=== PATIENT | female | born 1980 | race African-American/Black ===

== ENCOUNTER 2019-12-11 08:26 | Outpatient (CLI) | payer OTHER, MEDICAID, SELFPAY ==
--- NOTE | ~2019-12-11 | CT_ITS ---
EXAMINATION: CTA chest PE protocol DATE: 12/11/2019 09:18 INDICATION: Intermittent chest pain. Shortness of breath. TECHNIQUE: Computed tomography angiography (CTA) of the chest was performed with 100 mL Omnipaque-350 intravenous contrast timed to evaluate the pulmonary arteries. Coronal maximum intensity projection 3D-reconstructions were created by the technologist. Automated exposure control and iterative reconst ruction technique were employed. Exam dose: 579.15 mGy-cm total exam DLP. COMPARISON: None. FINDINGS: There is diagnostic contrast enhancement of the pulmonary arteries and no evidence of pulmo nary embolism. No thoracic aortic aneurysm or dissection. Normal heart size. No pericardial or pleural effusion. No pulmonary infiltrate or consolidation or pulmonary mass lesion. IMPRESSION: Negative examination; no evidence of pulmonary embolism Reviewed, dictated and finalized at [facility] Reviewed, dictated and finalized at [facility].
== END 2019-12-11 08:27 | disposition home or self-care (01) ==
LOC: ANHIMG 08:30
PROVIDERS: Visit Provider Internal Medicine Hematology & Oncology
DX: I26.99 Other pulmonary embolism without acute cor pulmonale (principal)
CPT/HCPCS: 71275; Q9967

== ENCOUNTER 2022-07-07 16:15 | Emergency (ER) | payer OTHER, MEDICAID, SELFPAY ==
[2022-07-07 16:26] VITALS: BP 153/91; PULSE 102; RESP 16; TEMP 37.5; O2SAT 100
--- NOTE | 2022-07-07 17:00 | ED.URI ---
HPI - URI/Sore Throat General Chief Complaint: Upper Respiratory Infection Stated Complaint: sore throat, cough, congestion Time Seen by Provider: 07/07/22 17:00 Source: patient, RN notes reviewed and old records reviewed Mode of arrival: ambulatory Limitations: no limitations History of Present Illness HPI Narrative: 41-year-old female who presents to [facility] with complaints week duration of productive cough, itchy throat,headache, sinus congestion and drainage which is greenish tinged, states that cough is worse at night. Patient reports that she has not had COVID vaccination has taken flu shot.Patient reports that she has been taking DayQuil and NyQuil.Patient reports no fevers, chills or sweats or any body aches, no history of asthma or tobacco use. MD elicited complaint: cough, sore throat, rhinorrhea, nasal congestion and other (headache) Onset (ago): week(s) (1) Description of mucous: green Able to tolerate fluids by mouth: Yes Treatments prior to arrival: other ( DayQuil and NyQuil) Related Data Home Medications Medication Instructions Recorded Confirmed levonorgestrel 20 mcg/24 hours (8 1 device intrauterine ONCE 01/28/21 07/07/22 yrs) 52 mg intrauterine device (Mirena) Allergies Allergy/AdvReac Type Severity Reaction Status Date / Time amoxicillin Allergy Intermediate hives Verified 07/07/22 16:30 Review of Systems Review of Systems: CONSTITUTIONAL: Denies malaise, chills, sweats, or fever. EYES: Denies visual changes, redness, or discharge. ENT: Reports rhinorrhea, congestion, sinus pain,no otalgia positive sore throat. CARDIOVASCULAR: Denies chest pain, palpitations, or edema. RESPIRATORY: Reports productive cough.? Denies dyspnea. GASTROINTESTINAL: Denies abdominal pain, nausea, vomiting, diarrhea SKIN: Denies rash or itching. MUSCULOSKELETAL: Denies myalgia. NEUROLOGIC:Reports headache. All systems reviewed & are unremarkable except as noted in HPI and below PMFSH Past Medical History Medical History Anemia Iron deficiency anemia Normal endoscopy Pulmonary embolism Surgical History Surgical History H/O gynecological procedure mirena iud 01/28/2020 Family History Family History Other Diabetes mellitus Hypertension Social History Social History Smoking status: Never smoker Alcohol intake: current Alcohol use details: socially Substance use: never Substance use type: does not use Gender identity (if verbalized by the patient): Female Spiritual care concerns: No Comments At time of signature, agree with nursing past medical, surgical, social and family history. There is no relevant family history pertinent to the presenting complaint Exam Narrative: GENERAL: Well-appearing, well-nourished, and in no acute distress. HEAD: Normocephalic EYES: PERRLA, conjunctivae clear ENT: Nares clear, turbinates edematous and erythematous, light green discharge. Mucous membranes moist. TM pearly zuniga with dull light reflex bilaterally; no tragal tenderness. Oropharynx erythematous without lesions. Tonsils not enlarged and without exudate, no drooling, no hoarseness, no trismus, uvula midline. NECK: Supple. No lymphadenopathy CHEST: Clear to auscultation, breath sounds equal. No wheezing, rhonchi, rales, or stridor. No respiratory distress, speaks in full sentences.productive cough SAO2 100% on room air HEART: Regular rate and rhythm. No murmur heard. SKIN: Warm, dry, no rash. NEURO: Alert and oriented x3. PSYCH: Normal mood and affect Course Course Emergency Course: Patient is aware of diagnosis, understands and agrees to treatment plan.? Anticipatory guidance given.? Patient agrees to follow-up as directed and
== END 2022-07-07 17:51 | disposition home or self-care (01) ==
PROVIDERS: Emergency Provider Registered Nurse; PCP Nurse Practitioner Family
DX: J06.9 Acute upper respiratory infection, unspecified (principal); R05.9 Cough, unspecified; Z86.711 Personal history of pulmonary embolism
CPT/HCPCS: 99213; G0463

== ENCOUNTER 2022-11-19 11:47 | Emergency (ER) | payer OTHER, MEDICAID, SELFPAY ==
[2022-11-19 11:55] VITALS: BP 144/88; PULSE 87; RESP 16; TEMP 37.1; O2SAT 100
--- NOTE | 2022-11-19 11:56 | ED.SKABFB ---
HPI - Skin/Abscess/Foreign Bdy General Chief complaint: Skin/Abscess/Foreign Body Stated complaint: rash on lt hand Time Seen by Provider: 11/19/22 11:56 Source: patient Mode of arrival: ambulatory Limitations: no limitations History of Present Illness HPI narrative: Ms. Gonzales is a 42-year-old female patient presenting to the clinic today with complaints of a rash to her bilateral hands. She reports she had recently had her fake nails removed and noticed black cuticles. States she is not having any other symptoms but is concerned about the black clear cuticles. She denies any chest pain or shortness of breath. Related Data Home Medications Medication Instructions Recorded Confirmed levonorgestrel 21 mcg/24 hours (8 1 device intrauterine ONCE 01/28/21 07/07/22 yrs) 52 mg intrauterine device (Mirena) Allergies Allergy/AdvReac Type Severity Reaction Status Date / Time amoxicillin Allergy Intermediate hives Verified 07/07/22 16:30 Review of Systems Review of Systems: Pertinent positives per HPI. Patient denies any fever, chills, headache, visual changes, dizziness, cough, runny nose, sore throat, shortness of breath, chest pain, palpitations, nausea, vomiting, diarrhea, constipation, abdominal pain, or any urinary issues. [facility] Past Medical History Medical History Anemia Iron deficiency anemia Normal endoscopy Pulmonary embolism Surgical History Surgical History H/O gynecological procedure mirena iud 01/28/2020 Family History Family History Other Diabetes mellitus Hypertension Social History Social History Smoking status: Never smoker Alcohol intake: current Alcohol use details: socially Substance use: never Substance use type: does not use Living arrangements: with family Gender identity (if verbalized by the patient): Female Spiritual care concerns: No Comments At the time of my signature, I reviewed and agree with the nursing past medical, surgical, social, and family history. There is no relevant family history pertinent to the patient complaint. Exam Narrative: General: Well-developed, well nourished, in no apparent distress Head: Normocephalic, atraumatic. Cardio: Regular rate and rhythm, s1 and s2 normal, no murmur appreciated. Resp: Clear to auscultation bilaterally, no rhonchi, rales, wheezing or rubs. Extremities: No deformity, no edema, no cyanosis, capillary refill less than 2 seconds, peripheral pulses palpable and strong. Black cuticles around all fingernails to bilateral hand Integumentary: [place], warm, and dry, intact without lesion, no rashes. Course Course Emergency Course: Portions of this record may have been created with voice recognition software. Level of Care: Express Care Visit Vital Signs Vital signs: Vital Signs Temperature 37.1 C 11/19/22 11:55 Pulse Rate 87 11/19/22 11:55 Respiratory Rate 16 11/19/22 11:55 Blood Pressure 144/88 H 11/19/22 11:55 Pulse Oximetry 100 11/19/22 11:55 Temperature 37.1 C 11/19/22 11:55 Pulse Rate 87 11/19/22 11:55 Respiratory Rate 16 11/19/22 11:55 Blood Pressure 144/88 H 11/19/22 11:55 Pulse Oximetry 100 11/19/22 11:55 Vital signs reviewed MDM - Skin/Abscess/Foreign Bdy MDM Narrative Medical decision making narrative: At the time of visit patient is resting comfortably on the exam table. I suspect the patient has darkening of her cuticles due to anemia/vitamin B12 deficiency. Patient does have history of anemia/vitamin B12 deficiency. No sign of fungal infection and she denies any heart problems. Supportive measures were discussed with the patient she voiced understanding discharge instructions and agrees to felipe
== END 2022-11-19 12:13 | disposition home or self-care (01) ==
PROVIDERS: Emergency Provider Nurse Practitioner Family; PCP Nurse Practitioner Family
DX: E53.8 Deficiency of other specified B group vitamins (principal); L81.9 Disorder of pigmentation, unspecified
CPT/HCPCS: 99211; G0463